=== PATIENT | female | born 1950 | race Caucasian/White ===

== ENCOUNTER 2016-11-30 19:37 | Emergency (ER) | payer OTHER ==
[~2016-11-30] VITALS: Ht 162.6 cm; Wt 47.1 kg
[2016-11-30 19:40] VITALS: TEMP 37.3; Ht 162.6 cm; Wt 47.1 kg
[2016-11-30] MEDS ORDERED: SODIUM CHLORIDE 0.9% 1000ML 1,000 ML IV STA (19:53)
[2016-11-30] MEDS ORDERED: ONDANSETRON INJ 2 MG/ML 2 ML VIAL IV STA (19:53)
[2016-11-30 20:17] LABS: BASO % 0.4 %; BASO ABS # 0.02 K/uL (0-0.2); COMPLETE YES; EOS % 0.7 %; IG% 0.2 %; LYMPH % 17.1 %; LYMPH ABS # 0.96 K/uL (1.2-3.4); MEAN CELL VOLUME 89.6 fL (80-100); MEAN CORPUSCULAR HEMOGLOBIN 30.3 pg (25-34); MEAN CORPUSCULAR HGB CONC 33.8 g/dl (32-36); MONO % 10.2 %; NEUT % 71.4 %; PLATELET COUNT 217 K/uL (130-400); RED BLOOD COUNT 4.13 M/uL (4.2-5.4); WHITE BLOOD COUNT 5.61 K/uL (4.8-10.8)
--- NOTE | 2016-11-30 20:35 | DIAGNOSTIC IMAGING REPORT ---
CT OF THE ABDOMEN AND PELVIS WITHOUT CONTRAST, STONE PROTOCOL CLINICAL HISTORY: Flank pain. Possible kidney infection. COMPARISON STUDY: CT of the abdomen and pelvis August 23, 2016 and renal ultrasound October 02, 2016. TECHNIQUE: Helical axial images of the abdomen and pelvis were obtained without IV or oral contrast according to renal stone protocol. FINDINGS: No renal, ureteral or bladder calculi are identified. There is no hydronephrosis or hydroureter. There is mild distention of the bladder. Evaluation of the remainder of the abdomen and pelvis is suboptimal on this unenhanced exam. Unenhanced images of liver, spleen, adrenal glands and pancreas are normal. There is no evidence for a bowel obstruction. No ascites is present. No lymphadenopathy is present. The appendix is normal. Evaluation is difficult given the lack of contrast and paucity of abdominal fat. No suspicious skeletal lesions are identified. IMPRESSION: 1. No urinary calculi or hydronephrosis. 2. No acute process within the abdomen or pelvis although evaluation is compromised given the lack of contrast and paucity of intra-abdominal fat. Electronically signed by: Kenny Garcia M.D. 11/30/2016 8:34 PM Dictated Date/Time: 11/30/2016 8:28 PM
[2016-11-30 20:36] LABS: BUN/CREATININE RATIO 11.6 (10-20); CALCIUM 8.8 mg/dl (8.5-10.1); CREATININE 0.71 mg/dl (0.60-1.20); POTASSIUM 3.8 mmol/L (3.5-5.1)
[2016-11-30 20:37] LABS: MANUAL MICROSCOPIC REQUIRED? NO; REVIEW REQ? YES; URINE APPEARANCE CLEAR (CLEAR); URINE BILIRUBIN NEG (NEG); URINE COLOR YELLOW; URINE NITRITE NEG (NEG); UROBILINOGEN NEG (NEG); ZZUR CULT IF INDIC CLEAN CATCH NO
--- NOTE | 2016-11-30 20:47 | EMERGENCY ROOM VISIT NOTE ---
History Report prepared by Fidelia: Cheryl Thomas Under the Supervision of: Dr. James Hart D.O. First contact with patient: 19:47 Chief Complaint: URINARY SYMPTOMS Stated Complaint: POSSIBLE KIDNEY INFECTION History of Present Illness The patient is a 66 year old female who presents to the Emergency Room with complaints of worsening urinary symptoms with onset one day ago. She rates her discomfort as a 5/10. The patient has had frequent urination and back pain. She describes that she has had some kidney pain. The patient has had nausea and diarrhea. The patient went to her PCP today for these symptoms. She was told to go to the ED if her kidney pain intensified. She was also told that there was some blood in her urine. The patient states that she was not started on any medication. Source of History: patient Onset: 1 day ago Position: back (lower) Symptom Intensity: 5/10 Timing: worsening Associated Symptoms: + back pain, + diarrhea, + nausea Note: She relates that she has had some kidney pain. Review of Systems See HPI for pertinent positives & negatives. A total of 10 systems reviewed and were otherwise negative. Past Medical & Surgical Medical Problems: (1) IBS (irritable bowel syndrome) (2) Osteoporosis Family History Hypertension Kidney disease Kidney stones Social History Smoking Status: Never Smoker Alcohol Use: none Drug Use: none Marital Status: Housing Status: lives with family Occupation Status: employed Current/Historical Medications Unable to Obtain Active Prescriptions or Reported Meds Allergies Coded Allergies: Penicillins (Verified Allergy, Unknown, RASH, 08/23/16) Lactose Intolerance (GI) (Verified Adverse Reaction, Unknown, GI SYMPTOMS, DIARRHEA, 08/23/16) Diarrhea Physical Exam Vital Signs Date Time Temp Pulse Resp B/P Pulse Ox O2 Delivery O2 Flow Rate FiO2 11/30/16 21:00 86 18 126/69 98 Room Air 11/30/16 19:40 37.3 90 18 160/85 98 Room Air Physical Exam CONSTITUTIONAL/VITAL SIGNS: Reviewed / noted above. GENERAL: Non-toxic in appearance. INTEGUMENTARY: Warm, dry, and [place]. HEAD: Normocephalic. EYES: without scleral icterus or trauma. ENT/OROPHARYNX: clear and moist. LYMPHADENOPATHY/NECK: Is supple without lymphadenopathy or meningismus. RESPIRATORY: Lungs clear and equal. CARDIOVASCULAR: Regular rate and rhythm. GI/ABDOMEN: Soft and nontender. No organomegaly or pulsatile mass. No rebound or guarding. Normal bowel sounds. EXTREMITIES: Warm and well perfused. BACK: She has mild right CVA tenderness. NEUROLOGICAL: Intact without focal deficits. PSYCHIATRIC: normal affect. MUSCULOSKELETAL: Normally developed with good muscle tone. Medical Decision & Procedures ER Provider Diagnostic Interpretation: CT results as stated below per my review and radiologist interpretation: CT OF THE ABDOMEN AND PELVIS WITHOUT CONTRAST, STONE PROTOCOL CLINICAL HISTORY: Flank pain. Possible kidney infection. COMPARISON STUDY: CT of the abdomen and pelvis August 23, 2016 and renal ultrasound October 02, 2016. TECHNIQUE: Helical axial images of the abdomen and pelvis were obtained without IV or oral contrast according to renal stone protocol. FINDINGS: No renal, ureteral or bladder calculi are identified. There is no hydronephrosis or hydroureter. There is mild distention of the bladder. Evaluation of the remainder of the abdomen and pelvis is suboptimal on this unenhanced exam. Unenhanced images of liver, spleen, adrenal glands and pancreas are normal. There is no evidence for a bowel obstruction. No ascites is present. No lymphadenopathy is present. The appendix is normal. Evaluation is difficult given the lack of contrast and paucity of abdominal fat. No suspicious skeletal lesions are identified. IMPRESSION: 1. No urinary calculi or hydronephrosis. 2. No acute process within the abdomen or pelvis although evaluation is compromised given the lack of contrast and paucity of intra-abdominal fat. Electronically signed by: Kenny Garcia M.D. 11/30/2016 8:34 PM Dictated Date/Time: 11/30/2016 8:28 PM Laboratory Results 11/30/16 20:05 Red Blood Count 4.13, Mean Corpuscular Volume 89.6, Mean Corpuscular Hemoglobin 30.3, Mean Corpuscular Hemoglobin Concent 33.8, Mean Platelet Volume 10.0, Neutrophils (%) (Auto) 71.4, Lymphocytes (%) (Auto) 17.1, Monocytes (%) (Auto) 10.2, Eosinophils (%) (Auto) 0.7, Basophils (%) (Auto) 0.4, Neutrophils # (Auto ) 4.01, Lymphocytes # (Auto) 0.96, Monocytes # (Auto) 0.57, Eosinophils # (Auto ) 0.04, Basophils # (Auto) 0.02 11/30/16 20:05 Test 11/30/16 19:58 11/30/16 20:05 Urine Color YELLOW Urine Appearance CLEAR (CLEAR) Urine pH 6.0 (4.5-7.5) Urine Specific [place] 1.000 (1.000-1.030) Urine Protein NEG (NEG) Urine Glucose (UA) NEG (NEG) Urine Ketones 1+ (NEG) Urine Occult Blood 2+ (NEG) Urine Nitrite NEG (NEG) Urine Bilirubin NEG (NEG) Urine Urobilinogen NEG (NEG) Urine Leukocyte Esterase NEG (NEG) Urine WBC (Auto) 0 /hpf (0-5) Urine RBC (Auto) 0-4 /hpf (0-4) Urine Hyaline Casts (Auto) 0 /lpf (0-5) Urine Epithelial Cells (Auto) 0-5 /lpf (0-5) Urine Bacteria (Auto) NEG (NEG) White Blood Count 5.61 K/uL (4.8-10.8) Red Blood Count 4.13 M/uL (4.2-5.4) Hemoglobin 12.5 g/dL (12.0-16.0) Hematocrit 37.0 % (37-47) Mean Corpuscular Volume 89.6 fL (80-100) Mean Corpuscular Hemoglobin 30.3 pg (25-34) Mean Corpuscular Hemoglobin Concent 33.8 g/dl (32-36) Platelet Count 217 K/uL (130-400) Mean Platelet Volume 10.0 fL (7.4-10.4) Neutrophils (%) (Auto) 71.4 % Lymphocytes (%) (Auto) 17.1 % Monocytes (%) (Auto) 10.2 % Eosinophils (%) (Auto) 0.7 % Basophils (%) (Auto) 0.4 % Neutrophils # (Auto) 4.01 K/uL (1.4-6.5) Lymphocytes # (Auto) 0.96 K/uL (1.2-3.4) Monocytes # (Auto) 0.57 K/uL (0.11-0.59) Eosinophils # (Auto) 0.04 K/uL (0-0.5) Basophils # (Auto) 0.02 K/uL (0-0.2) RDW Standard Deviation 41.7 fL (36.4-46.3) RDW Coefficient of Variation 12.8 % (11.5-14.5) Immature Granulocyte % (Auto) 0.2 % Immature Granulocyte # (Auto) 0.01 K/uL (0.00-0.02) Anion Gap 13.0 mmol/L (3-11) Est Creatinine Clear Calc Drug Dose 59.5 ml/min Estimated GFR () 104.3 Estimated GFR (Non- 90.0 BUN/Creatinine Ratio 11.6 (10-20) Calcium Level 8.8 mg/dl (8.5-10.1) Total Bilirubin 0.4 mg/dl (0.2-1) Direct Bilirubin 0.1 mg/dl (0-0.2) Aspartate Amino Transf (AST/SGOT) 33 U/L (15-37) Alanine Aminotransferase (ALT/SGPT) 16 U/L (12-78) Alkaline Phosphatase 76 U/L (45-117) Total Protein 7.3 gm/dl (6.4-8.2) Albumin 4.3 gm/dl (3.4-5.0) Lipase 250 U/L (73-393) Laboratory results as stated above per my review. Medications Administered Medications (Trade) Dose Ordered Sig/Felicita Route Start Time Stop Time Status Last Admin Dose Admin Sodium Chloride (Nss 1000ml) 1,000 ml @ 999 mls/hr Q1H1M STAT IV 11/30/16 19:53 11/30/16 20:53 DC 11/30/16 20:38 999 MLS/HR Ondansetron HCl (Zofran Inj) 4 mg NOW STAT IV 11/30/16 19:53 11/30/16 19:55 DC 11/30/16 20:08 4 MG ED Course 1950: Previous medical records were reviewed. The patient was evaluated in room A10. A complete history and physical examination was performed. 1952: Zofran 4 mg IV, Sodium Chloride 1000 ml @ 999 mls/hr IV 2046: On reevaluation, the patient is doing well. I discussed the results and findings with the patient. She verbalized agreement of the treatment plan. The patient was discharged home. Medical Decision The patient is a 66 year old female who presents to the ED with complaints of urinary symptoms. The patient states that her pain is in the right kidney area. She states that her symptoms started last night. She has had some increased frequency without burning. At 3 PM today she saw her PCP and her urine showed some blood. A culture was sent, according to the patient. She was not started on medication. She reports associated nausea without vomiting. She has had a little diarrhea. Her vital signs are stable. Her physical exam revealed mild right CVA tenderness. CT scan of the abdomen pelvis did not show any acute mallet. CBC and complete metabolic panel were normal. Lipase was negative. Urine reveals 2+ blood and 1+ ketones. The patient was treated with IV fluids and IV Zofran. She was told the results. She is felt to be stable for discharge and outpatient follow-up. Differential diagnosis: Etiologies such as renal colic, appendicitis, diverticulitis, mesenteric ischemia, aortic pathology, infections, inflammatory bowel disease, PUD, biliary pathology, UTI, as well as others were entertained. Impression Primary Impression: Right flank pain Scribe Attestation The scribe's documentation has been prepared under my direction and personally reviewed by me in its entirety. I confirm that the note above accurately reflects all work, treatment, procedures, and medical decision making performed by me. Departure Information Dispostion Home / Self-Care Prescriptions Unable to Obtain Active Prescriptions or Reported Meds Referrals Christina Macias MD (PCP) Patient Instructions My [facility] Additional Instructions Follow-up with your doctor for further care and evaluation in 1-2 days. Return to the emergency department for worsening or new symptoms or any concerns. You have been examined and treated today on an emergency basis only. This is not a substitute for, or an effort to provide, complete comprehensive medical care. It is impossible to recognize and treat all injuries or illnesses in a single emergency department visit. It is therefore important that you follow up closely with your doctor. Call as soon as possible for an appointment. Take Tylenol / Motrin for pain.
[2016-11-30 21:00] VITALS: BP 126/69; PULSE 86; O2SAT 98
[2016-11-30 21:04] LABS: URINE EPITHELIAL CELL AUTO 0-5 /lpf (0-5)
== END 2016-11-30 21:10 | disposition home or self-care (01) ==
LOC: C.EDB 19:38 → C.EDA 21:10
DX: R10.9 Unspecified abdominal pain (principal); K58.9 Irritable bowel syndrome, unspecified; M81.0 Age-related osteoporosis without current pathological fracture

== ENCOUNTER → 2016-11-30 | Outpatient (CLI) | payer OTHER ==
[~2016-11-30] MED LIST: CHOL100027 PO
[2016-11-30 17:51] LABS: URINE APPEARANCE CLEAR (CLEAR); URINE BILIRUBIN NEG (NEG); URINE COLOR YELLOW; URINE EPITHELIAL CELL AUTO 0-5 /lpf (0-5); URINE NITRITE NEG (NEG); UROBILINOGEN NEG (NEG)
[2016-11-30 17:55] LABS: MANUAL MICROSCOPIC REQUIRED? NO; REVIEW REQ? NO
== END | disposition home or self-care (01) ==
LOC: C.LABSPEC 16:42
PROVIDERS: ATTEND Nurse Practitioner Family
DX: R39.9 Unspecified symptoms and signs involving the genitourinary system (principal)

== ENCOUNTER → 2018-01-01 | Outpatient (CLI) | payer OTHER | END | disposition home or self-care (01) | LOC: C.LABSPEC 10:47 | PROVIDERS: ATTEND Neuromusculoskeletal Medicine & OMM | DX: N23 Unspecified renal colic (principal) ==

== ENCOUNTER → 2018-01-20 | Outpatient (CLI) | payer OTHER | END | disposition home or self-care (01) | LOC: C.MAMM 13:16 | PROVIDERS: ATTEND Family Medicine | DX: M81.0 Age-related osteoporosis without current pathological fracture (principal) ==